=== PATIENT | female | born 1985 | race African-American/Black ===

== ENCOUNTER 2017-01-23 08:49 | Emergency (ER) | payer OTHER ==
[~2017-01-23] VITALS: Ht 165.1 cm; Wt 71.0 kg
[2017-01-23] MEDS ORDERED: SODIUM CHLORIDE 0.9% 1,000 ML IV ONE (09:45)
[2017-01-23] MEDS ORDERED: FAMOTIDINE 20MG/2ML VIAL IV SCH (09:45)
[2017-01-23] MEDS ORDERED: ONDANSETRON HCL 4MG/2ML VIAL IV ONE (09:45)
[2017-01-23 10:38] LABS: CHLORIDE 107 mEq/L (98-107); INDEX HEMOLYSI 1 (1-3); INDEX ICTERIC 1 (1-4); INDEX LIPEMIC 1 (1-3)
[2017-01-23 10:47] LABS: ALANINE AMINOTRANSFERASE 26 IU/L (13-61); ALBUMIN 3.7 g/dL (3.4-5.0); ANION GAP 16; CALCIUM 8.5 mg/dL (8.5-10.1); CARBON DIOXIDE 25 mEq/L (21-32); UREA NITROGEN BLOOD 7 mg/dL (7-21); eGFR > 60 mL/min (>60)
[2017-01-23 10:51] LABS: CLARITY URINE CLEAR (CLEAR); COLOR URINE YELLOW (YELLOW); GLUCOSE URINE NEGATIVE (NEGATIVE); KETONES URINE 1+ (NEGATIVE); LEUKOCYTE ESTERASE URINE NEGATIVE (NEGATIVE); NITRITE URINE NEGATIVE (NEGATIVE); OCCULT BLOOD URINE NEGATIVE (NEGATIVE); PROTEIN URINE 2+ (NEGATIVE); SPECIFIC GRAVITY URINE 1.024 (1.005-1.030)
[2017-01-23 10:51] LABS: HEMATOCRIT. 39.4 % (36.0-48.0); HEMOGLOBIN. 13.2 g/dL (12.0-16.0); MEAN CORPUSCULAR HEMOGLOBIN 30.7 pg (28.0-32.0); MEAN CORPUSCULAR HGB CONC 33.7 g/dL (31.0-37.0); MEAN CORPUSCULAR VOLUME 91.4 fL (81.0-99.0); PLATELET 263 x1000/uL (130-400); RED BLOOD CELL COUNT 4.31 mill/uL (4.2-5.4); RED CELL DISTRIBUTION WIDTH 15.6 % (11.6-14.6); WHITE BLOOD COUNT 10.5 x1000/uL (4.5-11.0)
[2017-01-23 11:19] LABS: BACTERIA URINE TRACE; RBC URINE NONE SEEN /hpf (0-2); SQUAMOUS EPITHELIAL CELL URINE FEW /lpf (RARE/1+); WBC URINE NONE SEEN /hpf (0-2)
[2017-01-23 11:27] LABS: PLATELET ESTIMATE NORMAL
[2017-01-23 12:10] VITALS: BP 114/74
== END 2017-01-23 12:37 | disposition home or self-care (01) ==
LOC: ER 10:13
DX: R11.2 Nausea with vomiting, unspecified (principal); F12.10 Cannabis abuse, uncomplicated; R80.9 Proteinuria, unspecified
CPT/HCPCS: 36415; 80053; 81001; 85007; 85027; 96361; 96374; 96375; 99285; J2405; J3490; J7030; Z7610

== ENCOUNTER 2022-10-17 06:10 | Emergency (ER) | payer OTHER ==
[~2022-10-17] VITALS: Ht 165.1 cm; Wt 92.0 kg
[2022-10-17 06:20] VITALS: BP 166/108
[2022-10-17] MEDS ORDERED: ACETAMINOPHEN 325MG TABLET PO ONE (08:30)
== END 2022-10-17 09:28 | disposition home or self-care (01) ==
LOC: ER 06:10
DX: J02.9 Acute pharyngitis, unspecified (principal); I10 Essential (primary) hypertension
CPT/HCPCS: 87070; 87430; 99283